=== PATIENT | female | born 1955 | race Caucasian/White ===

== ENCOUNTER → 2019-04-07 | Outpatient (CLI) | payer OTHER ==
--- NOTE | 2019-04-07 19:16 | REP ---
Clinical: Left knee pain. Technique: AP, lateral, bilateral oblique and sunrise views of the left knee. Findings: Mild age-related generalized changes are appreciated. No acute fracture dislocation. No effusion. Impression: Generalized age-related degenerative changes. Electronically Signed by Conrad Rondon MD 04/07/2019 07:07 P
== END ==
LOC: M RAD 18:17
PROVIDERS: ATTEND Physician Assistant Medical
DX: M25.562 Pain in left knee (principal)

== ENCOUNTER → 2019-09-10 | Outpatient (REF) | payer OTHER | LOC: M LAB REF 17:02 | PROVIDERS: ATTEND Physician Assistant | DX: R10.9 Unspecified abdominal pain (principal) ==

== ENCOUNTER → 2019-10-06 | Outpatient (CLI) | payer OTHER ==
--- NOTE | 2019-10-06 17:06 | REP ---
MRI lumbar spine without contrast: History: Degenerative disc disease in the lumbar region. Low back pain and sciatic pain on the left side. No comparison lumbar imaging. Technique: Sagittal and axial T1 and T2-weighted scans are acquired in the usual fashion with and without fat saturation. Sequences include spin echo, turbo spin-echo, and STIR imaging sequences. MRI findings: There is straightening of the normal lumbar lordosis. A levoconvex rotoscoliotic curve is observed in the lumbar spine. The tip of the conus medullaris is normal in position and appearance at T-12. No extra spinal abnormality is observed. The L1-2 disc level is unremarkable. At L2-L3, there is degenerative narrowing of the disc. This indents the ventral margin of the thecal sac. Mild foraminal disc bulging is seen bilaterally. At L3-4, there is degenerative disc narrowing. Facet hypertrophy is noted. Mild diffuse disc bulging is seen. Canal size is borderline at L3-4. No focal disc protrusion is seen. No central canal stenosis is noted. At L4-L5, there is a left posterior focal disc protrusion which extends caudally. This compresses the left ventral margin of the thecal sac. There is mild central canal stenosis due to this in addition to ligamentum flavum and facet hypertrophy. There is left-sided foraminal stenosis due to facet hypertrophy and disc bulging. At L5-S1, there is mild bilateral facet hypertrophy. No disc protrusion is seen. No foraminal narrowing is seen. There is a small perineural cyst in the upper sacral thecal sac noted incidentally. Impression: Degenerative spondylosis changes. Scoliosis. There is a left posterior disc herniation at L4-5 compressing the thecal sac and the left fifth lumbar root and narrowing the neural foramen on the left. Electronically Signed by Sky Molina MD 10/07/2019 11:16 A
== END ==
LOC: M RAD 14:31
PROVIDERS: ATTEND Orthopaedic Surgery
DX: M51.36 Other intervertebral disc degeneration, lumbar region (principal); M51.26 Other intervertebral disc displacement, lumbar region

== ENCOUNTER 2019-10-21 02:42 | Emergency (ER) | payer OTHER ==
[~2019-10-21] VITALS: Ht 160 cm; Wt 67.3 kg
[2019-10-21 02:43] VITALS: BP 140/65
[2019-10-21] MEDS ORDERED: ESOM40CA35 PO (02:54)
[2019-10-21] MEDS ORDERED: GABA-843 PO (02:54)
[2019-10-21] MEDS ORDERED: VITA200028 PO (02:54)
[2019-10-21] MEDS ORDERED: SERT-138 PO (02:54)
[2019-10-21] MEDS ORDERED: TRAM50TA2 PO (02:54)
== END 2019-10-21 05:14 | disposition left against medical advice (07) ==
LOC: M ED 02:42
DX: Z53.21 Procedure and treatment not carried out due to patient leaving prior to being seen by health care provider (principal)

== ENCOUNTER 2021-03-04 18:34 | Emergency (ER) | payer MEDICARE, OTHER ==
[~2021-03-04] VITALS: Ht 157.5 cm; Wt 71.4 kg
[~2021-03-04 18:34] MED LIST: ESOM40CA35 PO; GABA-282 PO; SERT-138 PO; TRAM50TA2 PO; VITA200028 PO
[2021-03-04] MEDS ORDERED: OXYC-517 PO (19:52)
[2021-03-04] MEDS ORDERED: ACET-861 PO (19:52)
[2021-03-04 19:55] LABS: BASO # 0.1 10^3/uL (0.0-0.2); BASO % 0.5 % (0.0-1.0); EOS % 0.1 % (0.0-3.0); HEMATOCRIT 34.9 % (36.0-47.0); HEMOGLOBIN 11.5 g/dl (12.0-15.5); LYMPH # 0.7 10^3/uL (1.5-5.0); LYMPH % 7.9 % (24.0-44.0); MEAN CORPUSCULAR HEMOGLOBIN 28.3 pg (27.0-33.0); MEAN CORPUSCULAR VOLUME 85.7 fl (80.0-96.0); MONO # 1.2 10^3/uL (0.0-0.8); MONO % 13.5 % (2.0-8.0); NEUTROPHILS # 7.1 10^3/uL (1.5-8.5); NEUTROPHILS % 77.6 % (36.0-66.0); PLATELET COUNT, AUTOMATED 199 10^3/uL (150-450); RED BLOOD COUNT 4.07 10^6/uL (4.00-5.40); WHITE BLOOD COUNT 9.1 10^3/uL (4.0-10.0)
[2021-03-04 20:15] LABS: ERYTHROCYTE SEDIMENTATION RATE 44 mm/hr (0-30)
[2021-03-04 20:33] LABS: ALBUMIN 3.2 GM/DL (3.2-5.2); ALT/SGPT 18 U/L (12-78); BILIRUBIN,TOTAL 0.8 MG/DL (0.2-1.0); BLOOD UREA NITROGEN 9 MG/DL (7-18); CARBON DIOXIDE LEVEL 27 MEQ/L (21-32); CHLORIDE LEVEL 105 MEQ/L (98-107); CREATININE FOR GFR 0.47 MG/DL (0.55-1.30); GLOMERULAR FILTRATION RATE > 60.0 (>45); GLUCOSE, FASTING 114 MG/DL (70-100); SODIUM LEVEL 137 MEQ/L (136-145); TOTAL PROTEIN 6.1 GM/DL (6.4-8.2)
[2021-03-04] MEDS ORDERED: diazePAM 10MG/2ML SYRINGE (J3360 PER 5MG) IV ONE (20:50)
--- NOTE | 2021-03-04 21:37 | REP ---
INDICATION: fever, 2 days postop COMPARISON: 08/08/2011 TECHNIQUE: PA and lateral. FINDINGS: The mediastinum and cardiac silhouette are stable and within normal limits. The lung palacios demonstrate chronic appearing changes without focal consolidation or effusion. No significant atelectasis. No pneumothorax. The skeletal structures are intact and normal. IMPRESSION: No acute cardiopulmonary process. <Electronically signed by Conrad Rondon > 03/04/21 [id number]
[2021-03-04] MEDS ORDERED: MORPHINE 4 MG/ML 1ML VIAL/SYRINGE (J2270) IV ONE (22:25)
[2021-03-04] MEDS ORDERED: NS 1,000 ML IV ONE (23:10)
--- NOTE | 2021-03-04 23:24 | REPVR ---
PROCEDURE INFORMATION: Exam: MR Lumbar Spine Without Contrast Exam date and time: 03/04/2021 10:40 PM Age: 65 years old Clinical indication: Pain; Lumbago and other: Fever; Prior surgery; Surgery date: Post-operative (0-2 days); Surgery type: Laminectomy l4/l5 03/02/21; Additional info: S/P l4-5 laminectomy, fever today TECHNIQUE: Imaging protocol: Multiplanar magnetic resonance images of the lumbar spine without intravenous contrast. COMPARISON: MRI-Spine, L.S. without con 10/06/2019 3:26 PM FINDINGS: Vertebrae: The lumbar vertebral bodies are normal in height, without abnormal subluxation. Levoscoliosis of the lumbar spine. Spinal cord: The distal end of the conus medullaris ends at T12-L1, normal in position. Multilevel findings: Degenerative disc disease is noted diffusely within the lumbar spine, with disc bulge/osteophyte complexes. A decrease in disc height is identified from L2-L3 through L4-L5. There is a mild progression of edema within the bone marrow adjacent to the endplates at L1-L2. Edema is also noted within the bone marrow adjacent to the endplates at L3-L4 and L4-L5. Mild disc edema at L4-L5, with minimal disc edema at L2 to 3, without progression. These findings are likely degenerative. Infection is considered less likely. L1-L2: Minimal disc bulging. No significant spinal canal stenosis. Mild left neural foraminal narrowing. No significant narrowing of the right neural foramen. L2-L3: Mild facet arthropathy with hypertrophy of the ligamentum flavum. A right-sided disc protrusion is identified causing minimal narrowing of the right ventral thecal sac. This has increased in size. Mild right neural foraminal narrowing. There is mild bulging into the left neural foramen without significant narrowing. L3-L4: Facet arthropathy visualized with mild hypertrophy of the ligamentum flavum. No significant spinal canal stenosis. Mild bilateral neural foraminal narrowing. L4-L5: New postoperative changes are identified, with laminectomy defects at the L4-L5 and L5-S1 levels. A complex fluid collection is identified in this postoperative region involving the posterior epidural space and adjacent soft tissues. A fluid level is identified, concerning for hemorrhagic component. A hypointense loose body or focus of gas is also identified within this fluid collection. There is adjacent swelling soft tissue swelling. This fluid collection measures 4.0 x 1.8 x 3.5 cm. Differential considerations include postoperative change, pseudomeningocele, and abscess. Evaluation of this finding is limited by the absence of intravenous contrast. Severe narrowing of the thecal sac is identified at L4-L5, contributed by the posterior epidural fluid collection, disc bulging, and a left-sided disc protrusion. This narrowing has progressed. The AP dimension of the thecal sac measures 0.3 cm. There is narrowing of both lateral recesses at this level. See above. Severe left and moderate right neural foraminal narrowing. Facet arthropathy. L5-S1: Bilateral facet arthropathy. Minimal disc bulging. Minimal spinal canal stenosis. Mild narrowing of the proximal left neural foramen. No significant narrowing of the right neural foramen. Sacrum/coccyx: A small sacral meningeal cyst is visualized. Soft tissues: See "L4-L5" finding. Swelling of the subcutaneous tissues posteriorly. IMPRESSION: 1. New postoperative changes are identified, with laminectomy defects at the L4-L5 and L5-S1 levels. A complex fluid collection is identified in this postoperative region involving the posterior epidural space and adjacent soft tissues. A fluid level is identified, concerning for hemorrhagic component. A hypointense loose body or focus of gas is also identified within this fluid collection. Differential considerations include postoperative change, pseudomeningocele, and abscess. 2. Severe narrowing of the thecal sac is identified at L4-L5, contributed by the posterior epidural fluid collection, disc bulging, and a left-sided disc protrusion. This narrowing has progressed. 3. Degenerative changes are noted diffusely within the lumbar spine, as described above. 4. There is a mild progression of edema within the bone marrow adjacent to the endplates at L1-L2. Edema is also noted within the bone marrow adjacent to the endplates at L3-L4 and L4-L5. Mild disc edema at L4-L5, with minimal disc edema at L2 to 3, without progression. These findings are likely degenerative. Infection is considered less likely. 5. At L2-L3, a right-sided disc protrusion is identified causing minimal narrowing of the right ventral thecal sac. This has increased in size. 6. Minimal spinal canal stenosis at L5-S1. 7. Neural foraminal narrowing from L2-L3 through L5-S1. 8. Levoscoliosis of the lumbar spine. Electronically signed by: Manjit Mcneil On 03/04/2021 23:24:26 PM
[2021-03-05] MEDS ORDERED: diazePAM 10MG/2ML SYRINGE (J3360 PER 5MG) IV ONE (00:05)
[2021-03-05] MEDS ORDERED: PERCOCET 5MG/325MG TAB PO ONE (00:55)
[2021-03-05] MEDS ORDERED: METH-1165 PO (00:57)
[2021-03-05 01:00] VITALS: BP 126/60
--- NOTE | 2021-03-06 08:16 | ED PDOC ---
Post-Departure Follow-Up dr sim, dr mcclure/dr krishnan faxed formal report of mri ls spine for fu Steve Wilhelm MD Mar 06, 2021 08:16
== END 2021-03-05 01:28 | disposition home or self-care (01) ==
LOC: M ED 18:34
DX: R50.82 Postprocedural fever (principal); Z88.7 Allergy status to serum and vaccine; Z88.8 Allergy status to other drugs, medicaments and biological substances; Z91.040 Latex allergy status; Z98.890 Other specified postprocedural states
CPT/HCPCS: 71046; 72148; 80053; 81001; 83605; 85025; 85652; 86140; 87040; 96361; 96374; 96375; 99284; J2270; J3360

== ENCOUNTER → 2021-03-20 | Outpatient (CLI) | payer MEDICARE, OTHER ==
[~2021-03-20] MED LIST changes: +ACET-861 PO; +METH-1165 PO; +OXYC-517 PO
[2021-03-20 16:44] LABS: BASO # 0.1 10^3/uL (0.0-0.2); BASO % 1.5 % (0.0-1.0); EOS # 0.1 10^3/uL (0.0-0.5); EOS % 1.1 % (0.0-3.0); HEMATOCRIT 40.1 % (36.0-47.0); HEMOGLOBIN 12.2 g/dl (12.0-15.5); LYMPH # 1.2 10^3/uL (1.5-5.0); LYMPH % 25.4 % (24.0-44.0); MEAN CORPUSCULAR HEMOGLOBIN 27.1 pg (27.0-33.0); MEAN CORPUSCULAR HGB CONC 30.4 g/dl (32.0-36.5); MEAN CORPUSCULAR VOLUME 89.1 fl (80.0-96.0); MONO # 0.5 10^3/uL (0.0-0.8); MONO % 10.3 % (2.0-8.0); NEUTROPHILS # 2.9 10^3/uL (1.5-8.5); NEUTROPHILS % 61.3 % (36.0-66.0); PLATELET COUNT, AUTOMATED 309 10^3/uL (150-450); WHITE BLOOD COUNT 4.7 10^3/uL (4.0-10.0)
[2021-03-20 17:10] LABS: CHOLESTEROL RISK RATIO 4.387 (<5)
== END ==
LOC: M WUC 14:05
PROVIDERS: ATTEND Family Medicine
DX: G47.33 Obstructive sleep apnea (adult) (pediatric) (principal); K21.9 Gastro-esophageal reflux disease without esophagitis; J30.89 Other allergic rhinitis; Z13.220 Encounter for screening for lipoid disorders; Z79.899 Other long term (current) drug therapy

== ENCOUNTER → 2021-05-04 | Outpatient (CLI) | payer MEDICARE, OTHER ==
--- NOTE | 2021-05-04 13:19 | DEXAMM ---
INDICATION: Z13.820 SCREENING FOR OSTEOPOROSIS. COMPARISON: 01/22/2013, 08/26/2002. TECHNIQUE: Bone density was measured using dual-energy x-ray absorptiometry (DEXA). FINDINGS: AP SPINE L1-L4 BMD 1.123 g/cm2 Young Adult T-Score -0.6 Age Matched Z-Score 1.0. LT FEMUR, TOTAL BMD 0.872 g/cm2 Young Adult T-Score -1.1 Age Matched Z-Score 0.2. LT NECK BMD 0.813 g/cm2 Young Adult T-Score -1.6 Age Matched Z-Score -0.1. RT FEMUR, TOTAL BMD 0.838 g/cm2 Young Adult T-Score -1.3 Age Matched Z-Score 0.0. RT NECK BMD 0.771 g/cm2 Young Adult T-Score -1.9 Age Matched Z-Score -0.4. IMPRESSION: There is normal bone density of the spine. There is low bone density of the left hip. There is low bone density of the right hip. The density of the spine has decreased 0.7% since the initial exam on 08/26/2002. The density of the spine decreased 1.9% since most recent exam on 01/22/2013. The density of the left hip has decreased 6.4% since initial exam on 08/26/2002. The density of the left hip has decreased 5.2% since most recent exam on 01/22/2013. The density of the right hip has decreased 6.6% since the initial exam on 08/26/2002. The density of the right hip has decreased 7.1% since the most recent exam on 01/22/2013. FOLLOW-UP: Recommendation for the next bone density exam: 2 years. <Electronically signed by Josh Vazquez > 05/04/21 [id number]
== END ==
LOC: M WHC 11:33
PROVIDERS: ATTEND Family Medicine
DX: Z13.820 Encounter for screening for osteoporosis (principal); M85.89 Other specified disorders of bone density and structure, multiple sites

== ENCOUNTER → 2021-10-13 | Outpatient (CLI) | payer MEDICARE, OTHER ==
[2021-10-13 15:43] LABS: BLOOD UREA NITROGEN 21 MG/DL (7-18); CALCIUM LEVEL 9.1 MG/DL (8.8-10.2); CARBON DIOXIDE LEVEL 29 MEQ/L (21-32); CHLORIDE LEVEL 110 MEQ/L (98-107); GLOMERULAR FILTRATION RATE > 60.0 (>45); GLUCOSE, FASTING 104 MG/DL (70-100); MAGNESIUM LEVEL 2.4 MG/DL (1.8-2.4); POTASSIUM SERUM 4.3 MEQ/L (3.5-5.1); SODIUM LEVEL 143 MEQ/L (136-145)
== END ==
LOC: M PLALAB 11:57
PROVIDERS: ATTEND Family Medicine
DX: M54.16 Radiculopathy, lumbar region (principal)
CPT/HCPCS: 36415; 80048; 83735; G0463

== ENCOUNTER 2021-11-16 14:41 | Observation (INO) | payer MEDICARE, OTHER ==
[~2021-11-16] VITALS: Ht 157.5 cm; Wt 71.0 kg
[2021-11-16] MEDS ORDERED: MAGN250T22 PO (14:53)
[2021-11-16] MEDS ORDERED: AMIT25TA17 (14:53)
[2021-11-16] MEDS ORDERED: TIZA10TA (14:53)
[2021-11-16 15:33] LABS: BASO # 0.1 10^3/uL (0.0-0.2); BASO % 0.4 % (0.0-1.0); EOS % 0.1 % (0.0-3.0); HEMATOCRIT 41.7 % (36.0-47.0); HEMOGLOBIN 13.4 g/dl (12.0-15.5); LYMPH # 0.5 10^3/uL (1.5-5.0); LYMPH % 4.3 % (24.0-44.0); MEAN CORPUSCULAR HEMOGLOBIN 27.2 pg (27.0-33.0); MEAN CORPUSCULAR HGB CONC 32.1 g/dl (32.0-36.5); MEAN CORPUSCULAR VOLUME 84.8 fl (80.0-96.0); MONO # 0.8 10^3/uL (0.0-0.8); MONO % 6.5 % (2.0-8.0); NEUTROPHILS # 10.7 10^3/uL (1.5-8.5); NEUTROPHILS % 88.3 % (36.0-66.0); PLATELET COUNT, AUTOMATED 257 10^3/uL (150-450); RED BLOOD COUNT 4.92 10^6/uL (4.00-5.40); WHITE BLOOD COUNT 12.2 10^3/uL (4.0-10.0)
[2021-11-16 15:59] LABS: ALT/SGPT 24 U/L (12-78); BILIRUBIN,DIRECT < 0.1 MG/DL (0.0-0.2); BILIRUBIN,TOTAL 0.3 MG/DL (0.2-1.0); BLOOD UREA NITROGEN 20 MG/DL (7-18); CALCIUM LEVEL 9.1 MG/DL (8.8-10.2); CARBON DIOXIDE LEVEL 23 MEQ/L (21-32); CHLORIDE LEVEL 108 MEQ/L (98-107); CREATININE FOR GFR 0.65 MG/DL (0.55-1.30); GLOMERULAR FILTRATION RATE > 60.0 (>45); GLUCOSE, FASTING 125 MG/DL (70-100); LIPASE 94 U/L (73-393); POTASSIUM SERUM 4.1 MEQ/L (3.5-5.1); SODIUM LEVEL 140 MEQ/L (136-145); TOTAL PROTEIN 7.1 GM/DL (6.4-8.2)
[2021-11-16] MEDS ORDERED: ISOVUE-370 76% 100ML VIAL As Ordered ONE (18:55)
[2021-11-16 19:26] LABS: INR 0.97; PARTIAL THROMBOPLASTIN TIME 28.2 SECONDS (25.9-37.0); PROTHROMBIN TIME 13.3 SECONDS (12.7-14.5)
[2021-11-16] MEDS ORDERED: NS 1,000 ML IV ONE (20:35)
[2021-11-16 21:13] LABS: HEMATOCRIT 39.6 % (36.0-47.0); HEMOGLOBIN 12.9 g/dl (12.0-15.5)
[2021-11-16] MEDS ORDERED: MOM 30ML SUSPENSION UDC PO PRN (21:20)
[2021-11-16] MEDS ORDERED: MAALOX 30 ML SUSP *UDC PO PRN (21:20)
[2021-11-16] MEDS ORDERED: D31000TA2 PO (21:21)
[2021-11-16] MEDS ORDERED: OYST500T92 PO (21:21)
[2021-11-16] MEDS ORDERED: AMIT25TA17 PO (21:21)
[2021-11-16] MEDS ORDERED: TIZA10TA PO (21:21)
[2021-11-16] MEDS ORDERED: ESOM0.1C PO (21:21)
[2021-11-16] MEDS ORDERED: MAGN400T2 PO (21:21)
[2021-11-16] MEDS ORDERED: HOME MED LIST COMPLETE! XX SCH (21:25)
[2021-11-16] MEDS: PIPERACILLIN/TAZOBACTAM SOD 4.5 GM in D5W MINI-BAG PLUS 50 ML IV SCH (23:12)
[2021-11-16] MEDS: NS 0.45% 1,000 ML IV SCH (23:12)
[2021-11-17] MEDS: PIPERACILLIN/TAZOBACTAM SOD 4.5 GM in D5W MINI-BAG PLUS 50 ML IV SCH ×3 (04:03→17:00)
[2021-11-17] MEDS: NS 0.45% 1,000 ML IV SCH ×2 (04:03→13:03)
[2021-11-17 07:49] LABS: BASO % 0.5 % (0.0-1.0); EOS # 0.1 10^3/uL (0.0-0.5); EOS % 0.8 % (0.0-3.0); HEMATOCRIT 34.3 % (36.0-47.0); HEMOGLOBIN 11.2 g/dl (12.0-15.5); LYMPH # 1.1 10^3/uL (1.5-5.0); LYMPH % 17.6 % (24.0-44.0); MEAN CORPUSCULAR HEMOGLOBIN 27.4 pg (27.0-33.0); MEAN CORPUSCULAR HGB CONC 32.7 g/dl (32.0-36.5); MEAN CORPUSCULAR VOLUME 83.9 fl (80.0-96.0); MONO # 0.8 10^3/uL (0.0-0.8); MONO % 13.1 % (2.0-8.0); NEUTROPHILS # 4.4 10^3/uL (1.5-8.5); NEUTROPHILS % 67.7 % (36.0-66.0); PLATELET COUNT, AUTOMATED 208 10^3/uL (150-450); RED BLOOD COUNT 4.09 10^6/uL (4.00-5.40); WHITE BLOOD COUNT 6.4 10^3/uL (4.0-10.0)
[2021-11-17 08:20] LABS: ALBUMIN 3.1 GM/DL (3.2-5.2); ALT/SGPT 17 U/L (12-78); BILIRUBIN,TOTAL 0.7 MG/DL (0.2-1.0); BLOOD UREA NITROGEN 10 MG/DL (7-18); CALCIUM LEVEL 8.3 MG/DL (8.8-10.2); CARBON DIOXIDE LEVEL 24 MEQ/L (21-32); CHLORIDE LEVEL 113 MEQ/L (98-107); CREATININE FOR GFR 0.62 MG/DL (0.55-1.30); GLOMERULAR FILTRATION RATE > 60.0 (>45); GLUCOSE, FASTING 104 MG/DL (70-100); MAGNESIUM LEVEL 2.2 MG/DL (1.8-2.4); POTASSIUM SERUM 3.7 MEQ/L (3.5-5.1); SODIUM LEVEL 142 MEQ/L (136-145); TOTAL PROTEIN 5.7 GM/DL (6.4-8.2)
[2021-11-17] MEDS: NS 1,000 ML IV SCH (14:00)
[2021-11-17] MEDS ORDERED: PREPARATION H OINTMENT (HEMORRHOID) PR PRN (14:00)
[2021-11-17] MEDS: ACETAMINOPHEN TAB 650MG DOSE (2X325MG) PO PRN (18:52)
[2021-11-17 22:35] VITALS: BP 139/72
[2021-11-18] MEDS: PIPERACILLIN/TAZOBACTAM SOD 4.5 GM in D5W MINI-BAG PLUS 50 ML IV SCH ×2 (00:02→05:25)
[2021-11-18] MEDS: NS 1,000 ML IV SCH ×2 (00:02→06:00)
[2021-11-18 04:00] VITALS: BP 113/70
[2021-11-18] MEDS: ACETAMINOPHEN TAB 650MG DOSE (2X325MG) PO PRN (04:11)
[2021-11-18] MEDS ORDERED: metroNIDAZOLE (FLAGYL) 500MG TABLET PO SCH (08:00)
[2021-11-18] MEDS ORDERED: CIPR-249 PO (08:58)
[2021-11-18] MEDS ORDERED: RISATAB3 PO (08:58)
[2021-11-18] MEDS ORDERED: METR-265 PO (08:58)
[2021-11-18] MEDS ORDERED: PREPOI PR (08:58)
[2021-11-18] MEDS ORDERED: LACTOBACILLUS ACIDOPHILUS CAP (BACID) PO SCH (09:00)
[2021-11-18] MEDS ORDERED: CIPROFLOXACIN 500MG TABLET PO SCH (09:00)
[2021-11-18 10:24] LABS: HEMATOCRIT 35.1 % (36.0-47.0); HEMOGLOBIN 11.3 g/dl (12.0-15.5); MEAN CORPUSCULAR HEMOGLOBIN 27.4 pg (27.0-33.0); MEAN CORPUSCULAR HGB CONC 32.2 g/dl (32.0-36.5); PLATELET COUNT, AUTOMATED 210 10^3/uL (150-450); RED BLOOD COUNT 4.13 10^6/uL (4.00-5.40); WHITE BLOOD COUNT 4.6 10^3/uL (4.0-10.0)
[2021-11-18 10:50] LABS: BLOOD UREA NITROGEN 4 MG/DL (7-18); CALCIUM LEVEL 8.4 MG/DL (8.8-10.2); CARBON DIOXIDE LEVEL 24 MEQ/L (21-32); CHLORIDE LEVEL 114 MEQ/L (98-107); CREATININE FOR GFR 0.71 MG/DL (0.55-1.30); GLOMERULAR FILTRATION RATE > 60.0 (>45); GLUCOSE, FASTING 107 MG/DL (70-100); POTASSIUM SERUM 3.4 MEQ/L (3.5-5.1); SODIUM LEVEL 145 MEQ/L (136-145)
== END 2021-11-18 14:42 | disposition home or self-care (01) ==
LOC: M ED 14:41 → M ED INP 14:42 → M MSPAV 23:11
PROVIDERS: ADMIT Family Medicine; ATTEND Family Medicine
DX: K51.011 Ulcerative (chronic) pancolitis with rectal bleeding (principal); D64.9 Anemia, unspecified; K58.1 Irritable bowel syndrome with constipation; G47.33 Obstructive sleep apnea (adult) (pediatric); K21.9 Gastro-esophageal reflux disease without esophagitis; M54.50 Low back pain, unspecified; Z79.899 Other long term (current) drug therapy; Z88.5 Allergy status to narcotic agent; Z88.7 Allergy status to serum and vaccine
CPT/HCPCS: 36415; 74177; 80048; 80053; 80076; 81001; 83605; 83690; 83735; 85014; 85018; 85025; 85027; 85610; 85730; 86850; 86900; 86901; 87040; 87086; 87426; 87505; 93005; 96361; 96365; 96366; 99285; G0378; J2543; Q9967

== ENCOUNTER → 2022-04-12 | Outpatient (CLI) | payer MEDICARE, OTHER ==
[~2022-04-12] MED LIST changes: +AMIT25TA17; +AMIT25TA17 PO; +CIPR-249 PO; +ESOM0.1C PO; +MAGN250T22 PO; +MAGN400T2 PO; +METR-265 PO; +OYST500T92 PO; +PREPOI PR; +RISATAB3 PO; +TIZA10TA; +TIZA10TA PO; +VITA100093 PO
[2022-04-12 17:35] LABS: BASO # 0.1 10^3/uL (0.0-0.2); BASO % 0.9 % (0.0-1.0); EOS # 0.1 10^3/uL (0.0-0.5); EOS % 0.9 % (0.0-3.0); HEMATOCRIT 39.3 % (36.0-47.0); HEMOGLOBIN 12.4 g/dl (12.0-15.5); LYMPH # 0.9 10^3/uL (1.5-5.0); LYMPH % 16.4 % (24.0-44.0); MEAN CORPUSCULAR HEMOGLOBIN 27.7 pg (27.0-33.0); MEAN CORPUSCULAR HGB CONC 31.6 g/dl (32.0-36.5); MEAN CORPUSCULAR VOLUME 87.7 fl (80.0-96.0); MONO # 0.5 10^3/uL (0.0-0.8); MONO % 9.9 % (2.0-8.0); NEUTROPHILS # 3.9 10^3/uL (1.5-8.5); NEUTROPHILS % 71.5 % (36.0-66.0); PLATELET COUNT, AUTOMATED 232 10^3/uL (150-450); RED BLOOD COUNT 4.48 10^6/uL (4.00-5.40); WHITE BLOOD COUNT 5.4 10^3/uL (4.0-10.0)
[2022-04-12 17:50] LABS: ALBUMIN 3.3 GM/DL (3.2-5.2); ALT/SGPT 18 U/L (12-78); BILIRUBIN,TOTAL 0.3 MG/DL (0.2-1.0); BLOOD UREA NITROGEN 16 MG/DL (7-18); CALCIUM LEVEL 9.4 MG/DL (8.8-10.2); CARBON DIOXIDE LEVEL 28 MEQ/L (21-32); CHLORIDE LEVEL 113 MEQ/L (98-107); CREATININE FOR GFR 0.62 MG/DL (0.55-1.30); GLOMERULAR FILTRATION RATE > 60.0 (>45); GLUCOSE, FASTING 118 MG/DL (70-100); MAGNESIUM LEVEL 2.2 MG/DL (1.8-2.4); POTASSIUM SERUM 3.9 MEQ/L (3.5-5.1); RHEUMATOID FACTOR QUANT < 10.0 IU/ML (<15.0); SODIUM LEVEL 144 MEQ/L (136-145); TOTAL PROTEIN 6.1 GM/DL (6.4-8.2)
[2022-04-12 17:53] LABS: FOLATE 15.7 NG/ML; VITAMIN B12 LEVEL 180 PG/ML
[2022-04-12 18:11] LABS: ERYTHROCYTE SEDIMENTATION RATE 12 mm/hr (0-30)
[2022-04-12 19:44] LABS: HEMOGLOBIN A1c 5.2 %
[2022-04-13 14:13] LABS: ALBUMIN % 65.6 % (55.8-66.1); ALPHA-1-GLOBULIN % 4.7 % (2.9-4.9); ALPHA-1-GLOBULINS 0.29 GM/DL (0.17-0.41); ALPHA-2-GLOBULINS 0.71 GM/DL (0.42-0.99); ALPHA-2-GLOBULINS % 11.7 % (7.1-11.8); BETA-1-GLOBULINS 0.36 GM/DL (0.28-0.60); BETA-1-GLOBULINS % 5.9 % (4.7-7.2); BETA-2-GLOBULINS 0.24 GM/DL (0.19-0.55); GAMMA GLOBULIN % 8.1 % (11.1-18.8); GAMMA GLOBULINS 0.49 GM/DL (0.65-1.58)
== END ==
LOC: M WUC 15:25
PROVIDERS: ATTEND Psychiatry & Neurology Neurology
DX: G62.9 Polyneuropathy, unspecified (principal); Z79.899 Other long term (current) drug therapy

== ENCOUNTER → 2022-06-05 | Outpatient (REF) | payer MEDICARE, OTHER ==
[2022-06-05 14:57] LABS: CHOLESTEROL RISK RATIO 4.056 (<5)
== END ==
LOC: M WUC 13:59
PROVIDERS: ATTEND Family Medicine
DX: E78.2 Mixed hyperlipidemia (principal); E53.8 Deficiency of other specified B group vitamins

== ENCOUNTER → 2022-08-14 | Outpatient (CLI) | payer MEDICARE, OTHER | LOC: M PLAIMG 07:59 | PROVIDERS: ATTEND Physician Assistant Medical | DX: M51.36 Other intervertebral disc degeneration, lumbar region (principal); M96.1 Postlaminectomy syndrome, not elsewhere classified; G91.0 Communicating hydrocephalus; Z82.49 Family history of ischemic heart disease and other diseases of the circulatory system; R29.818 Other symptoms and signs involving the nervous system ==

== ENCOUNTER → 2022-09-22 | Outpatient (CLI) | payer MEDICARE, OTHER | LOC: M RAD 09:01 | PROVIDERS: ATTEND Physician Assistant Medical | DX: M54.16 Radiculopathy, lumbar region (principal); G91.0 Communicating hydrocephalus; Z98.890 Other specified postprocedural states ==

== ENCOUNTER → 2022-11-22 | Outpatient (CLI) | payer MEDICARE, OTHER ==
[2022-11-22 11:53] LABS: BILIRUBIN,DIRECT 0.3 MG/DL (<0.4)
[2022-11-22 11:54] LABS: ALBUMIN 3.8 G/DL (3.2-5.2); BILIRUBIN,TOTAL 0.7 MG/DL (0.3-1.2); CHOLESTEROL RISK RATIO 3.14 (<5); HDL CHOLESTEROL 40.4 MG/DL (>40); LDL CHOLESTEROL 62.8 MG/DL (<100)
== END ==
LOC: M WUC 08:51
PROVIDERS: ATTEND Family Medicine
DX: E78.2 Mixed hyperlipidemia (principal)

== ENCOUNTER → 2023-02-13 | Outpatient (CLI) | payer MEDICARE, OTHER ==
[2023-02-13 15:27] LABS: BLOOD UREA NITROGEN 18 MG/DL (9-23); CREATININE FOR GFR 0.64 MG/DL (0.55-1.30); GLOMERULAR FILTRATION RATE > 60.0 (>45)
== END ==
LOC: M PLALAB 10:43
PROVIDERS: ATTEND Psychiatry & Neurology Neurology
DX: I10 Essential (primary) hypertension (principal)

== ENCOUNTER → 2023-12-16 | Outpatient (CLI) | payer MEDICARE, OTHER ==
[~2023-12-16] MED LIST changes: -AMIT25TA17; -AMIT25TA17 PO; +AMIT25TA19; +AMIT25TA19 PO
[2023-12-16 12:53] LABS: BASO # 0.1 10^3/uL (0.0-0.2); BASO % 1.2 % (0.0-1.0); EOS # 0.1 10^3/uL (0.0-0.5); EOS % 1.2 % (0.0-3.0); HEMATOCRIT 41.6 % (36.0-47.0); HEMOGLOBIN 13.2 g/dl (12.0-15.5); LYMPH % 23.4 % (24.0-44.0); MEAN CORPUSCULAR HEMOGLOBIN 27.3 pg (27.0-33.0); MEAN CORPUSCULAR HGB CONC 31.7 g/dl (32.0-36.5); MEAN CORPUSCULAR VOLUME 86.1 fl (80.0-96.0); MONO # 0.4 10^3/uL (0.0-0.8); MONO % 9.8 % (2.0-8.0); NEUTROPHILS # 2.7 10^3/uL (1.5-8.5); NEUTROPHILS % 63.9 % (36.0-66.0); PLATELET COUNT, AUTOMATED 194 10^3/uL (150-450); RED BLOOD COUNT 4.83 10^6/uL (4.00-5.40); WHITE BLOOD COUNT 4.2 10^3/uL (4.0-10.0)
[2023-12-16 13:23] LABS: ALBUMIN 3.6 G/DL (3.2-5.2); ALKALINE PHOSPHATASE 68 U/L (46-116); ALT/SGPT 27 U/L (7.0-40); AST/SGOT 21 U/L (<34); BILIRUBIN,TOTAL 0.5 MG/DL (0.3-1.2); BLOOD UREA NITROGEN 19 MG/DL (9-23); CARBON DIOXIDE LEVEL 28 MMOL/L (20-31); CHLORIDE LEVEL 110 MMOL/L (98-107); CHOLESTEROL LEVEL 136 MG/DL (<200); CREATININE FOR GFR 0.62 MG/DL (0.55-1.30); GLOMERULAR FILTRATION RATE > 60.0 (>39); GLUCOSE, FASTING 97 MG/DL (74-106); HDL CHOLESTEROL 48.5 MG/DL (>40); LDL CHOLESTEROL 65.1 MG/DL (<100); NON-HDL-C 87.5 MG/DL; POTASSIUM SERUM 4.4 MMOL/L (3.5-5.1); SODIUM LEVEL 142 MMOL/L (136-145); TOTAL 25(OH) VITAMIN D 33.1 NG/ML (20.0-100.0); TRIGLYCERIDES LEVEL 112 MG/DL (<150)
[2023-12-16 13:24] LABS: THYROID STIMULATING HORMONE 2.505 uIU/ML (0.55-4.78)
== END ==
LOC: M PLALAB 11:42
PROVIDERS: ATTEND Family Medicine
DX: G47.33 Obstructive sleep apnea (adult) (pediatric) (principal); D72.819 Decreased white blood cell count, unspecified; K21.9 Gastro-esophageal reflux disease without esophagitis; M85.80 Other specified disorders of bone density and structure, unspecified site; E78.2 Mixed hyperlipidemia

== ENCOUNTER → 2024-11-24 | Outpatient (CLI) | payer MEDICARE, OTHER ==
[~2024-11-24] MED LIST changes: -ESOM0.1C PO; +ESOM20CA2 PO; +GABA-1172 PO; -GABA-282 PO
[2024-11-24 14:52] LABS: HEMATOCRIT 41.6 % (36.0-47.0); HEMOGLOBIN 13.2 g/dl (12.0-15.5); MEAN CORPUSCULAR HEMOGLOBIN 27.4 pg (27.0-33.0); MEAN CORPUSCULAR HGB CONC 31.7 g/dl (32.0-36.5); MEAN CORPUSCULAR VOLUME 86.5 fl (80.0-96.0); PLATELET COUNT, AUTOMATED 209 10^3/uL (150-450); RED BLOOD COUNT 4.81 10^6/uL (4.00-5.40); WHITE BLOOD COUNT 4.8 10^3/uL (4.0-10.0)
[2024-11-24 15:32] LABS: ALBUMIN 3.8 G/DL (3.2-5.2); ALKALINE PHOSPHATASE 69 U/L (35-104); ALT/SGPT 17 U/L (7.0-40); AST/SGOT 13 U/L (<34); BILIRUBIN,TOTAL 0.5 MG/DL (0.3-1.2); BLOOD UREA NITROGEN 19 MG/DL (9-23); CALCIUM LEVEL 9.9 MG/DL (8.3-10.6); CARBON DIOXIDE LEVEL 26 MMOL/L (20-31); CHLORIDE LEVEL 107 MMOL/L (98-107); CHOLESTEROL LEVEL 151 MG/DL (<200); CREATININE FOR GFR 0.59 MG/DL (0.55-1.30); FOLATE 11.6 NG/ML (>5.4); GLOMERULAR FILTRATION RATE > 60.0 (>39); GLUCOSE, FASTING 92 MG/DL (74-106); HDL CHOLESTEROL 48.6 MG/DL (>40); LDL CHOLESTEROL 78.4 MG/DL (<100); NON-HDL-C 102.4 MG/DL; POTASSIUM SERUM 4.4 MMOL/L (3.5-5.1); SODIUM LEVEL 144 MMOL/L (136-145); TOTAL PROTEIN 6.6 G/DL (5.7-8.2); TRIGLYCERIDES LEVEL 120 MG/DL (<150)
[2024-11-24 15:34] LABS: VITAMIN B12 LEVEL 152 PG/ML (211-911)
== END ==
LOC: M PLALAB 11:54
PROVIDERS: ATTEND Family Medicine
DX: K21.9 Gastro-esophageal reflux disease without esophagitis (principal); M85.80 Other specified disorders of bone density and structure, unspecified site; E78.2 Mixed hyperlipidemia; G47.33 Obstructive sleep apnea (adult) (pediatric)

== ENCOUNTER → 2025-02-15 | Outpatient (CLI) | payer MEDICARE, OTHER ==
[2025-02-16 15:27] LABS: HOMOCYST(E)INE SERUM 9.3 umol/L (<10.4)
== END ==
LOC: M LAB 10:18
PROVIDERS: ATTEND Family Medicine
DX: R79.89 Other specified abnormal findings of blood chemistry (principal)

== ENCOUNTER → 2025-09-29 | Outpatient (CLI) | payer MEDICARE, OTHER | LOC: M WHC 12:23 | PROVIDERS: ATTEND Family Medicine | DX: M81.0 Age-related osteoporosis without current pathological fracture (principal) ==